=== PATIENT | male | born 1945 | race African-American/Black ===

== ENCOUNTER 2016-08-05 15:15 | Emergency (ER) | payer MEDICARE, MEDICAID ==
[~2016-08-05] VITALS: Ht 162.6 cm; Wt 61.0 kg
[~2016-08-05 15:15] MED LIST: ASPI325T2 PO; ATOR20TA PO; CALC1TAB17 PO; CHOL100046 PO; NORT25CA; TRAM50TA73 PO
[2016-08-05] MEDS ORDERED: TRAMADOL 50MG TABLET PO ONE (15:45)
[2016-08-05 16:39] VITALS: BP 133/87
== END 2016-08-05 19:22 | disposition home or self-care (01) ==
LOC: ER 15:37
DX: S09.8XXA Other specified injuries of head, initial encounter (principal); R51 Headache; M54.2 Cervicalgia; G89.29 Other chronic pain; Y93.89 Activity, other specified; W19.XXXA Unspecified fall, initial encounter; Y92.89 Other specified places as the place of occurrence of the external cause; M48.02 Spinal stenosis, cervical region; E78.5 Hyperlipidemia, unspecified; Z88.6 Allergy status to analgesic agent; J44.9 Chronic obstructive pulmonary disease, unspecified; H40.9 Unspecified glaucoma; Z98.84 Bariatric surgery status; E78.00 Pure hypercholesterolemia, unspecified; Z90.49 Acquired absence of other specified parts of digestive tract; I10 Essential (primary) hypertension; Z88.0 Allergy status to penicillin; Z79.82 Long term (current) use of aspirin
CPT/HCPCS: 70450; 72125; 99284

== ENCOUNTER 2016-10-20 13:02 | Emergency (ER) | payer MEDICARE, MEDICAID ==
[~2016-10-20] VITALS: Ht 167.6 cm; Wt 59.0 kg
[~2016-10-20 13:02] MED LIST changes: +ASPI-986 PO; -ASPI325T2 PO
[2016-10-20 14:09] VITALS: BP 121/56
== END 2016-10-20 21:54 | disposition left against medical advice (07) ==
LOC: ER 21:12
DX: M79.672 Pain in left foot (principal); Z53.21 Procedure and treatment not carried out due to patient leaving prior to being seen by health care provider

== ENCOUNTER 2016-12-10 17:07 | Emergency (ER) | payer MEDICARE, MEDICAID ==
[~2016-12-10] VITALS: Ht 167.6 cm; Wt 65.0 kg
[2016-12-10] MEDS ORDERED: ACETAMINOPHEN 500MG TABLET PO ONE (18:30)
[2016-12-10 22:48] VITALS: BP 128/75
== END 2016-12-10 22:51 | disposition home or self-care (01) ==
LOC: ER 17:37
DX: S92.532A Displaced fracture of distal phalanx of left lesser toe(s), initial encounter for closed fracture (principal); J44.9 Chronic obstructive pulmonary disease, unspecified; E78.00 Pure hypercholesterolemia, unspecified; I20.9 Angina pectoris, unspecified; H40.9 Unspecified glaucoma; Z88.0 Allergy status to penicillin; Z88.6 Allergy status to analgesic agent; Z79.82 Long term (current) use of aspirin; V03.90XA Pedestrian on foot injured in collision with car, pick-up truck or van, unspecified whether traffic or nontraffic accident, initial encounter; Y93.89 Activity, other specified; Y92.410 Unspecified street and highway as the place of occurrence of the external cause; Y99.8 Other external cause status
CPT/HCPCS: 73630; 99284